=== PATIENT | female | born 2000 | race Caucasian/White ===

== ENCOUNTER 2019-04-11 18:18 | Emergency (ER) | payer OTHER ==
[~2019-04-11] VITALS: Ht 165.1 cm; Wt 59.0 kg
--- NOTE | 2019-04-11 18:18 | NUR ---
BROUGHT BACK TO HALLWAY BED, TRIAGED. REPORT GIVEN TO LV
[2019-04-11 18:20] VITALS: BP_SYST 101
--- NOTE | 2019-04-11 18:44 | NUR ---
PATIENT CAME IN COMPLAINING OF PAIN IN RIGHT SIDE OF PELVIS RADIATING TO BACK SINCE THIS MORNING. PATIENT COMPLAINING OF 4/10 SHARP/THROBBING PAIN. PATIENT STATES SHE HASNT TAKEN ANYTHING FOR PAIN. PATIENT STATES SHE STARTED HER MENSTRAL TODAY. PATIENT STATES SHE USED 2 PADS SO FAR TODAY. PATIENT DENIES SOB, NAUSEA, AND VOMITING. PATIENT IS ALERT AND ORIENTED X4.
--- NOTE | 2019-04-11 18:58 | NUR ---
ER Dr. HOLLOWAY at bedside examining patient.
--- NOTE | 2019-04-11 19:10 | NUR ---
Carolee gustafson in [facility] - 04/11/19 at 3 by [email or web address] Patient transported to radiology via wheelchair, accompanied by rad staff.
--- NOTE | 2019-04-11 19:14 | NUR ---
ENDORSED CARE TO GABBIE NELSON.
--- NOTE | 2019-04-11 20:08 | NUR ---
Carolee gustafson in [facility] - 04/11/19 at 2033 by [email or web address] Pt returned in stable condition, will continue to monitor.
--- NOTE | 2019-04-11 20:33 | NUR ---
Patient transported to radiology via wheelchair, accompanied by rad staff.
--- NOTE | 2019-04-11 21:00 | NUR ---
Pt returned in stable condition.
[2019-04-11 21:38] VITALS: BP_SYST 100
--- NOTE | 2019-04-11 21:38 | NUR ---
Patient given written and verbal discharge instructions and verbalizes understanding. ER MD discussed with patient the results and treatment provided. Patient in stable condition. ID arm band removed. Rx of Fountain 5 and motrin given. Patient educated on pain management and to follow up with PMD. Pain Scale 0/10. Opportunity for questions provided and answered. Medication side effect fact sheet provided.
== END 2019-04-11 21:38 | disposition home or self-care (01) ==
LOC: SED 18:18
DX: R10.9 Unspecified abdominal pain (principal)
CPT/HCPCS: 76830-TC; 76857; 81002; 81025; 99284